=== PATIENT | female | born 1985 | race Caucasian/White ===

== ENCOUNTER 2017-04-20 08:36 | Emergency (ER) | payer OTHER ==
[2017-04-20 08:40] VITALS: BP 116/76
[2017-04-20] MEDS ORDERED: TETRACAINE 0.5% OPHTH SOLUTION 4ML BOTTLE. OS ONE (08:45)
[2017-04-20] MEDS ORDERED: FLUORESCEIN 1MG EYE STRIP. ONE (08:55)
[2017-04-20] MEDS ORDERED: TETRACAINE 0.5% OPHTH SOLUTION 4ML BOTTLE. ONE (08:55)
--- NOTE | 2017-04-20 09:09 | PHYS DOC ---
General Chief Complaint: EYE PROBLEMS Stated Complaint: EYE PROBLEM Time Seen by MD: 08:44 Source: patient Exam Limitations: no limitations Problems: History of Present Illness Initial Comments Patient is a 32-year-old female who comes in complaining of left eye conjunctivitis. Patient states that 2 nights ago her [id number] son and her spouse were wrestling and her son accidentally caught the patient's left eye with his great toenail. She says she did have a small cut in her eyelid and had severe discomfort at her eye for about 24 hours. The severe discomfort symptoms did resolve after 24 hours, the last 2 days she's had left I swelling and drainage stating that this morning when she awoke it was matted shut with yellow discharge. She has intermittent itching and blurred vision when her eye is tearing. No foreign body sensation or severe pain now no vision changes otherwise she denies fever chills sweats or myalgias no headache neck stiffness or other complaints. Tetanus is up-to-date. Timing/Duration: abrupt, other (2 days ago) Severity: severe Location: eye (L) Prearrival Treatment: over the counter meds Modifying Factors: improves with other Associated Symptoms: other Past Medical History Medical History: other (depression) Surgical History: noncontributory Social History Smoker: non-smoker Alcohol: rarely Drugs: none Constitutional: denies chills, denies diaphoresis, denies fever Eyes: see HPI Ears: denies dizziness, denies pain, denies tinnitus Nose: denies clots, denies congestion, denies epistaxis Throat: denies pain, denies swelling, denies neck stiffness Respiratory: denies cough, denies shortness of breath Cardiovascular: denies chest pain, denies palpitations Neurological: denies headache, denies numbness, denies paresthesia Physical Exam General Appearance: mild distress Eyes: right eye normal inspection, left eye other (conjunctiva injected yellow discharge noted), bilateral eye PERRL, bilateral eye EOMI Nose: normal inspection Mouth/Throat: normal mouth inspection, pharynx normal Neck: non-tender, supple Cardiovascular/Respiratory: normal peripheral pulses, normal breath sounds Neurologic/Psychiatric: channeler insole II-XII nml as tested, no motor/sensory deficits, alert, normal mood/affect, oriented x 3 Skin: normal color, warm/dry Orders, Labs, Meds L 20/20 R 20/20 b/l 20/25 Per the patient's history it sounds as if she had a corneal abrasion which has healed. At that time she was likely inoculated and bacterial growth has occurred over the next 2 days causing conjunctivitis. Departure Time of Disposition: 09:07 Disposition: 01 HOME, SELF-CARE Diagnosis: conjunctivitis left eye Condition: GOOD Patient Instructions: Bacterial Conjunctivitis, [id number] Additional Instructions: Please review the patient education materials given to you by the staff. Avoid scratching and rubbing your eyes. Aggressive handwashing to prevent spread of infection. Prescription: Polytrim ophthalmic solution 1 drop to the left eye every 3 hours while awake for 10 days. It is recommended that you follow-up with an wet cotton feeder or price checker next week, call to schedule appointment. Return to the ED with new or changing symptoms. RENETTA ELMORE DO Apr 20, 2017 09:09
[2017-04-21] MEDS ORDERED: CEPH-264 PO (21:26)
[2017-04-21] MEDS ORDERED: SULF1TAB24 PO (21:26)
[2017-04-21] MEDS ORDERED: FLUC200T PO (21:26)
== END 2017-04-20 09:14 | disposition home or self-care (01) ==
LOC: ER 08:36
DX: H10.9 Unspecified conjunctivitis (principal)
CPT/HCPCS: 99283

== ENCOUNTER 2017-04-21 20:28 | Emergency (ER) | payer OTHER ==
[2017-04-21 20:30] VITALS: BP 124/73
[2017-04-21] MEDS ORDERED: SULF1TAB24 PO (21:26)
[2017-04-21] MEDS ORDERED: FLUC200T PO (21:26)
[2017-04-21] MEDS ORDERED: CEPH-264 PO (21:26)
--- NOTE | 2017-04-21 21:26 | PHYS DOC ---
Past History Past Medical History: Depression Past Surgical History: No Surgical History Alcohol Use: Rarely Drug Use: None Adult General Chief Complaint Chief Complaint: SKIN PROBLEM HPI HPI Patient is a 32 year old female who presents with complaint of left thigh redness and pain. Patient states that her symptoms started approximately 1 week ago. Patient thinks that she may have been bitten by a spider. Patient states initially the redness and swelling subsided, however over the past few days she has noticed increasing in redness and swelling. Patient rates her pain currently as 2 out of 10. Patient has had no fevers associated with her symptoms. Patient states that she was seen in the emergency department yesterday and was treated for left conjunctivitis. Patient states that since her visit that has increased in size significantly. [] Review of Systems Review of Systems Constitutional: Denies fever or chills [] Eyes: Left eye drainage and redness [] HENT: Denies nasal congestion or sore throat [] Respiratory: Denies cough or shortness of breath [] Cardiovascular: Denies chest pain or edema [] GI: Denies abdominal pain, nausea, vomiting, bloody stools or diarrhea [] : Denies dysuria or hematuria [] Musculoskeletal: Denies back pain or joint pain [] Integument: Redness and swelling to left thigh [] Neurologic: Denies headache, focal weakness or sensory changes [] Allergies Allergies Allergies Coded Allergies Type Severity Reaction Last Updated Verified No Known Drug Allergies 04/21/17 No Physical Exam Physical Exam Constitutional: Alert, afebrile, no acute distress. [] HENT: Normocephalic, atraumatic, bilateral external ears normal, oropharynx moist, no oral exudates, nose normal. [] Eyes: PERRLA, EOMI, left conjunctiva inflamed, left scleral injection present, no discharge. [] Neck: Normal range of motion, no tenderness, supple, no stridor. [] Cardiovascular:Heart rate regular rhythm, no murmur [] Lungs & Thorax: Bilateral breath sounds clear to auscultation [] Abdomen: Bowel sounds normal, soft, no tenderness, no masses, no pulsatile masses. [] Skin: Warm, dry, no erythema, no rash. [] Back: No midline tenderness, no flank ecchymosis. [] Extremities: Left dorsal medial thigh with erythema and induration measuring approximately 2-1/2 cm, surrounding erythema extending 3 cm beyond central point , no fluctuant lesions, mild tenderness on palpation, ROM intact. [] Neurologic: Alert and oriented X 3, normal motor function, normal sensory function, no focal deficits noted. [] Current Patient Data Vital Signs Vital Signs Date Time Temp Pulse Resp B/P (MAP) Pulse Ox O2 Delivery O2 Flow Rate FiO2 04/21/17 20:30 98.5 85 16 98 Room Air EKG EKG Not performed [] Radiology/Procedures Radiology/Procedures Not performed [] Course & Med Decision Making Course & Med Decision Making Pertinent Labs and Imaging studies reviewed. (See chart for details) The patient's evaluation appears consistent with cellulitis. There is no palpable abscess pocket on exam. The patient was started on Bactrim and Keflex to cover for resistant staph infection and strep infection. Advised follow-up with primary doctor in 3-5 days and return to the emergency department for any worsening symptoms. Patient voiced understanding and in agreement with treatment plan. Dragon Disclaimer Dragon Disclaimer This chart was dictated in whole or in part using Voice Recognition software in a busy, high-work load, and often noisy Emergency Department environment. It may contain unintended and wholly unrecognized errors or omissions. Departure Departure: Impression: Primary Impression: Cellulitis Disposition: 01 HOME, SELF-CARE Condition: IMPROVED Referrals: PCP,UNKNOWN (PCP) Patient Instructions: Cellulitis Additional Instructions: Follow-up with your primary doctor in 3-5 days if symptoms are not improving. Return to emergency department for any worsening symptoms. Scripts Fluconazole (DIFLUCAN) 200 Mg Tablet 1 TAB PO ONCE, #1 TAB Patient may refill on April 28, 2017 as needed Prov: YVES WARD MD 04/21/17 Cephalexin (KEFLEX) 500 Mg Capsule 1 CAP PO TID, #21 CAP Prov: YVES WARD MD 04/21/17 Sulfamethoxazole/Trimethoprim (BACTRIM DS TABLET) 1 Each Tablet 1 TAB PO BID, #14 TAB Prov: YVES WARD MD 04/21/17 Problem Qualifiers Primary Impression: Cellulitis Site of cellulitis: extremity Site of cellulitis of extremity: lower extremity Laterality: left Qualified Codes: L03.116 - Cellulitis of left lower limb YVES WARD MD Apr 21, 2017 21:26
[2017-04-21] MEDS ORDERED: SMZ/TMP 800/160MG TABLET. PO ONE (21:45)
[2017-04-21] MEDS ORDERED: CEPHALEXIN 250 MG CAPSULE PO SCH (21:45)
== END 2017-04-21 21:35 | disposition home or self-care (01) ==
LOC: ER 20:28
DX: L03.116 Cellulitis of left lower limb (principal); H57.8 Other specified disorders of eye and adnexa
CPT/HCPCS: 99283

== ENCOUNTER 2017-05-01 08:40 | Emergency (ER) | payer OTHER ==
[~2017-05-01 08:40] MED LIST: CEPH-264 PO; FLUC200T PO; SULF1TAB24 PO
[2017-05-01 08:45] VITALS: BP 121/72
--- NOTE | 2017-05-01 09:18 | PHYS DOC ---
Past History Past Medical History: Depression Past Surgical History: No Surgical History Alcohol Use: Rarely Drug Use: None Adult General Chief Complaint Chief Complaint: SKIN RASH/ABSCESS HPI HPI Patient is a 32 year old F who presents with rash. Over the past 2 weeks Aicha has been diagnosed with conjunctivitis as well as cellulitis appearing to be consistent with erysipelas, likely caused by strep. She has been on Bactrim as well as Keflex and will finish her Bactrim this evening. Starting yesterday evening she developed a bumpy red raised rash on her extremities and trunk that has spread symmetrically since. She states that the rash is itchy but not painful. She has tried Benadryl without much relief. She does not have any other associated symptoms at this time. Review of Systems Review of Systems Constitutional: Denies fever or chills [] Eyes: Denies change in visual acuity, redness, or eye pain [] HENT: Denies nasal congestion or sore throat [] Respiratory: Denies cough or shortness of breath [] Cardiovascular: No additional information not addressed in HPI [] GI: Denies abdominal pain, nausea, vomiting, bloody stools or diarrhea [] : Denies dysuria or hematuria [] Musculoskeletal: Denies back pain or joint pain [] Integument: Negative except history of present illness Neurologic: Denies headache, focal weakness or sensory changes [] Endocrine: Denies polyuria or polydipsia [] Family History Family History Noncontributory Current Medications Current Medications Medications reviewed Allergies Allergies Coded Allergies Type Severity Reaction Last Updated Verified No Known Drug Allergies 04/21/17 No Physical Exam Physical Exam Constitutional: Well developed, well nourished, no acute distress, non-toxic appearance. [] HENT: Normocephalic, atraumatic, bilateral external ears normal, oropharynx moist, no oral exudates, nose normal. [] Eyes: PERRLA, EOMI, conjunctiva normal, no discharge. [] Neck: Normal range of motion, no tenderness, supple, no stridor. [] Cardiovascular:Heart rate regular rhythm, no murmur [] Lungs & Thorax: Bilateral breath sounds clear to auscultation [] Abdomen: Bowel sounds normal, soft, no tenderness, no masses, no pulsatile masses. [] Skin: Maculopapular erythematous raised rash on all extremities and trunk. Excluding face. Left inner thigh cellulitis appears to be healing. Back: No tenderness, no CVA tenderness. [] Extremities: No tenderness, no cyanosis, no clubbing, ROM intact, no edema. [] Neurologic: Alert and oriented X 3, normal motor function, normal sensory function, no focal deficits noted. [] Psychologic: Affect normal, judgement normal, mood normal. [] Current Patient Data Vital Signs Vital signs per nursing report Course & Med Decision Making Course & Med Decision Making Pertinent Labs and Imaging studies reviewed. (See chart for details) Differential diagnosis includes rash secondary to lysis of strep bacteria after treatment of erysipelas, allergic reaction to antibiotics, viral exanthem Dragon Disclaimer Dragon Disclaimer This chart was dictated in whole or in part using Voice Recognition software in a busy, high-work load, and often noisy Emergency Department environment. It may contain unintended and wholly unrecognized errors or omissions. Departure Departure: Impression: Primary Impression: Rash Disposition: 01 HOME, SELF-CARE Condition: STABLE Referrals: PCP,UNKNOWN (PCP) Patient Instructions: Rash Additional Instructions: Aicha was seen in the ED for rash. No emergency medical condition was found during the history and physical exam. Her symptoms were consistent a viral syndrome vs drug reaction vs killing the bacteria cause her skin infection. She was given a prescription for oral steroids to use only if her symptoms worsen. She was also advised to use nasal saline rinses. She was advised to follow up with her primary care doctor as needed and to return to the emergency room if she develops new or worsening symptoms Scripts Prednisone (PREDNISONE) 10 Mg Tablet 10 MG PO DAILY for 5 Days, #5 TAB Prov: BHASKAR RAMOS MD 05/01/17 BHASKAR RAMOS MD May 01, 2017 09:18
[2017-05-01] MEDS ORDERED: PRED-220 PO (09:22)
== END 2017-05-01 09:35 | disposition home or self-care (01) ==
LOC: ER 08:40
DX: R21 Rash and other nonspecific skin eruption (principal); L29.9 Pruritus, unspecified
CPT/HCPCS: 99283

== ENCOUNTER 2017-11-13 16:41 | Emergency (ER) | payer OTHER ==
[~2017-11-13 16:41] MED LIST changes: +PRED-220 PO
[2017-11-13] MEDS ORDERED: IBUP800T19 PO (17:42)
[2017-11-13] MEDS ORDERED: ONDA4TAB10 SL (17:45)
[2017-11-13 17:48] VITALS: BP 114/86
--- NOTE | 2017-11-13 17:59 | ED.ADGEN ---
Past History Past Medical History: Depression Past Surgical History: No Surgical History Alcohol Use: None Drug Use: None Adult General Chief Complaint Chief Complaint nausea, vomiting, fever HPI HPI Patient is a 32 year old female who presents with nausea and vomiting earlier today. Pt reported temp of 99 at home. She hasn't attempted any pain relieving medication. She's had mild runny nose and cough, mild malaise. Pt came because she had two kids with the flu and thought she may also have it. Otherwise healthy, no meds. Review of Systems Review of Systems Constitutional: Denies chills [] Eyes: Denies change in visual acuity, redness, or eye pain [] HENT: Denies nasal congestion or sore throat [] Respiratory: reports cough, denies shortness of breath [] Cardiovascular: Denies chest pain GI: Denies abdominal pain, nausea, vomiting, bloody stools or diarrhea [] Musculoskeletal: Denies back pain or joint pain [] Integument: Denies rash or skin lesions [] Neurologic: Denies headache, focal weakness or sensory changes [] Endocrine: Denies polyuria or polydipsia [] All other systems were reviewed and found to be within normal limits, except as documented in this note. Allergies Allergies Allergies Coded Allergies Type Severity Reaction Last Updated Verified Sulfa (Sulfonamide Antibiotics) Allergy Intermediate 11/13/17 Yes Physical Exam Physical Exam Constitutional: Well developed, well nourished, no acute distress, non-toxic appearance. [] HENT: Normocephalic, atraumatic, bilateral external ears normal, oropharynx moist, no oral exudates, nose normal. [] Eyes: PERRLA, EOMI, conjunctiva normal, no discharge. [] Neck: Normal range of motion, no tenderness, supple, no stridor. [] Cardiovascular:Heart rate regular with regular rhythm, no murmur [] Lungs & Thorax: Bilateral breath sounds clear to auscultation , no wheeze and crackles Abdomen: Bowel sounds normal, soft, no tenderness, no masses, no pulsatile masses. [] Skin: Warm, dry, no erythema, no rash. [] Back: No tenderness, no CVA tenderness. [] Extremities: No tenderness, no cyanosis, no clubbing, ROM intact, no edema. [] Neurologic: Alert and oriented X 3, normal motor function, normal sensory function, no focal deficits noted. [] Psychologic: Affect normal, judgement normal, mood normal. [] Current Patient Data Vital Signs Vital Signs Date Time Temp Pulse Resp B/P (MAP) Pulse Ox O2 Delivery O2 Flow Rate FiO2 11/13/17 17:48 89 18 114/86 (95) 99 Room Air 11/13/17 17:01 98.4 EKG EKG [] Radiology/Procedures Radiology/Procedures [] Course & Med Decision Making Course & Med Decision Making Pertinent Labs and Imaging studies reviewed. (See chart for details) Discussed with pt that testing for flu wouldn't change the management. She agreed and therefore flu not sent. Pt is healthy and not indicated to receive tamiflu. Precautions given to drink fluids, ibuprofen or tylenol for pain/fever , wash hands. She voiced understanding. Final Impression Final Impression Viral Illness[] Problems: Dragon Disclaimer Dragon Disclaimer This electronic medical record was generated, in whole or in part, using a voice recognition dictation system. RAJANI BOWMAN MD Nov 13, 2017 17:59
[2017-11-13 18:05] LABS: INFLUENZA A PATIENT NEGATIVE (NEGATIVE); INFLUENZA B PATIENT NEGATIVE (NEGATIVE)
== END 2017-11-13 17:49 | disposition home or self-care (01) ==
LOC: ER 16:41
DX: B34.9 Viral infection, unspecified (principal); F32.9 Major depressive disorder, single episode, unspecified; Z88.2 Allergy status to sulfonamides
CPT/HCPCS: 87804; 99284